=== PATIENT | male | born 1945 | race Native Hawaiian/Other Pacific Islander ===

== ENCOUNTER 2017-07-01 19:03 | Emergency (ER) | payer SELFPAY ==
[~2017-07-01] VITALS: Ht 170.2 cm; Wt 72.1 kg
[2017-07-01 19:17] VITALS: BP 131/59; PULSE 69; RESP 18; TEMP 98.6; O2SAT 97
[2017-07-01] MEDS ORDERED: LIPI20TA PO (19:39)
[2017-07-01] MEDS ORDERED: EDAR40TA (19:39)
--- NOTE | 2017-07-01 20:07 | PD ---
HPI Chief Complaint: Numbness/Tingling Time Seen by Provider: 19:46 Travel History International Travel<30 days: No Contact w/Intl Traveler<30days: No Traveled to known affect area: No History of Present Illness HPI This patient complains of paresthesias in the toes of both feet. Duration is 3 months. He does not have sensory loss or muscle weakness elsewhere. He denies diabetes. He does drink 2-4 alcoholic drinks daily. He is not having chest pain or syncopal. He had lightheadedness earlier but that has resolved. Symptoms severity this time is mild. He doesn't a family physician but hasn't discussed this with him. PFSH Past Medical History High Cholesterol: Yes Hypertension: Yes Social History Alcohol Use: Yes Tobacco Use: No Substance Use: No Allergies-Medications (Allergen,Severity, Reaction): Coded Allergies: Penicillins (Verified Allergy, Severe, Anaphylaxis, 07/01/17) Reported Meds & Prescriptions Reported Meds & Active Scripts Active Reported Edarbi (Azilsartan) 40 Mg Tab 40 Mg DAILY Lipitor (Atorvastatin Calcium) 20 Mg Tab 20 Mg PO HS Review of Systems General / Constitutional: No: Fever Eyes: No: Visual changes HENT: Positive: Lightheadedness, No: Headaches Cardiovascular: No: Chest Pain or Discomfort Respiratory: No: Shortness of Breath Gastrointestinal: No: Abdominal Pain Genitourinary: No: Dysuria Musculoskeletal: No: Pain Skin: No Rash Neurologic: Positive: Paresthesia, No: Weakness Psychiatric: Positive: Substance Abuse, No: Depression Endocrine: No: Polydipsia Hematologic/Lymphatic: No: Easy Bruising Physical Exam Narrative GENERAL: Well-nourished, well-developed patient in no apparent distress. SKIN: Focused skin assessment reveals no rash and nodules. Skin is Warm and dry. HEAD: Atraumatic. Normocephalic. EYES: Pupils equal and round. No scleral icterus. No injection or drainage. ENT: No nasal bleeding or discharge. Mucous membranes pink and moist. NECK: Trachea midline. No JVD. CARDIOVASCULAR: Regular rate and rhythm. No murmur appreciated. RESPIRATORY: No accessory muscle use. Clear to auscultation. Breath sounds equal bilaterally. GASTROINTESTINAL: Abdomen soft, non-tender, nondistended. Hepatic and splenic margins not palpable. MUSCULOSKELETAL: No obvious deformities. No clubbing. No cyanosis. No edema. NEUROLOGICAL: Awake and alert. No obvious cranial nerve deficits. Motor grossly within normal limits. Normal speech. PSYCHIATRIC: Appropriate mood and affect; insight and judgment normal. Data Data Last Documented VS Vital Signs Date Time Temp Pulse Resp B/P (MAP) Pulse Ox O2 Delivery O2 Flow Rate FiO2 07/01/17 19:34 97 Room Air 07/01/17 19:17 98.6 69 18 131/59 (83) MDM Medical Decision Making Medical Screen Exam Complete: Yes Emergency Medical Condition: Yes Medical Record Reviewed: Yes Differential Diagnosis Neuropathy, paresthesia, TIA Narrative Course I have reviewed the patient's electronic medical record. Patient has chronic paresthesias the toe which I suspect are due to neuropathy likely from alcohol use He is encouraged to cut back Neurologically is normal to exam No suspicion of CVA His lightheadedness has resolved and he is stable for outpatient follow-up Diagnosis Primary Impression: Neuropathy Additional Impression: Lightheadedness Additional Instructions: The patient was advised to follow up with their physician and return if they worsen. Cut back alcohol use Med/Other Pt SpecificInfo: Other Disposition: 01 DISCHARGE HOME Condition: Stable Huber Cm MD Jul 01, 2017 20:07
== END 2017-07-01 20:20 | disposition home or self-care (01) ==
LOC: PHED 19:03
DX: G62.9 Polyneuropathy, unspecified (principal); R42 Dizziness and giddiness; E78.00 Pure hypercholesterolemia, unspecified; I10 Essential (primary) hypertension; Z79.899 Other long term (current) drug therapy; Z88.0 Allergy status to penicillin
CPT/HCPCS: 99281